=== PATIENT | female | born 1945 | race Caucasian/White ===

== ENCOUNTER 2019-01-06 20:06 | Emergency (ER) | payer MEDICARE, BC ==
[2019-01-06] MEDS ORDERED: Acetaminophen/HYDROcodone 325-5 MG Tab PO ONE (20:38)
--- NOTE | 2019-01-06 20:54 | EDM.PDOC ---
ED HPI GENERAL MEDICAL PROBLEM - General Chief Complaint: General Stated Complaint: ARM Time Seen by Provider: 01/06/19 20:30 Source of Information: Reports: Patient, Family History Limitations: Reports: No Limitations - History of Present Illness INITIAL COMMENTS - FREE TEXT/NARRATIVE: Shirlene comes into [facility] ED with a swollen R forearm that she struck onto a door this am. Initially there was just minor swelling with a minor skin tear, but swelling has progressed slowly throughout the day, associated with discoloration of the skin, and more recent onset of pain radiating into the R posterior arm. Grasp is painful, and she cannot hold an ink pen to sign her name. She has taken no meds. She is not on anticoagulants. ED ROS GENERAL - Review of Systems Review Of Systems: ROS reveals no pertinent complaints other than HPI. ED EXAM, GENERAL - Physical Exam Exam: See Below Exam Limited By: No Limitations General Appearance: Alert, WD/WN, Moderate Distress Head: Atraumatic, Normocephalic Neck: Normal Inspection, Supple Respiratory/Chest: No Respiratory Distress, Lungs Clear, No Accessory Muscle Use Cardiovascular: Regular Rate, Rhythm Extremities: Arm Pain (R forearm: dorsal swelling with marked ecchymoses measuring 16 cm, in addition to a superfical 2.4x2.4 cm laceration with no active bleeding. The R hand and wrist seem unaffected, and there is no effusion of the elbow. ), Limited Range of Motion Neurological: Alert, Oriented, CN II-XII Intact, Normal Cognition, No Motor/ Sensory Deficits Psychiatric: Normal Affect, Anxious Skin Exam: Warm, Dry, Ecchymosis, Wound/Incision Lymphatic: No Adenopathy Course - Vital Signs Text/Narrative:: Following assessment, I discussed case with [facility] ED regarding further assessment including US imaging and possible surgical consultation, and Shirlene was accepted as a patient. Hydrocodone 5/325 po given prior to transfer. The wound was dressed with Telfa. - Orders/Labs/Meds Meds: Medications Discontinued Medications Generic Name Dose Route Start Last Admin Trade Name Freq PRN Reason Stop Dose Admin Hydrocodone Bitart/Acetaminophen 1 tab 01/06/19 20:38 01/06/19 20:44 [place] 325-5 Mg PO 01/06/19 20:39 1 tab ONETIME ONE Administration Departure - Departure Time of Disposition: 20:45 Disposition: DC/Tfer to Other 70 Condition: Fair Clinical Impression: Traumatic hematoma of right forearm Qualifiers: Encounter type: initial encounter Qualified Code(s): S50.11XA - Contusion of right forearm, initial encounter - Discharge Information *PRESCRIPTION DRUG MONITORING PROGRAM REVIEWED*: Not Applicable *COPY OF PRESCRIPTION DRUG MONITORING REPORT IN PATIENT MARIS: Not Applicable Referrals: PCP,None [Primary Care Provider] - Forms: ED Department Discharge - Problem List & Annotations (1) Traumatic hematoma of right forearm SNOMED Code(s): 29382576 Code(s): S50.11XA - CONTUSION OF RIGHT FOREARM, INITIAL ENCOUNTER Status: Acute Current Visit: Yes Annotation/Comment:: Will see [facility] ED for further evaluation. Qualifiers: Encounter type: initial encounter Qualified Code(s): S50.11XA - Contusion of right forearm, initial encounter - Problem List Review Problem List Initiated/Reviewed/Updated: Yes - Assessment/Plan Plan: Follow up with PCP.
== END 2019-01-06 20:50 | disposition other institution (70) ==
LOC: FB.ED 20:06
DX: S51.811A Laceration without foreign body of right forearm, initial encounter (principal); W22.8XXA Striking against or struck by other objects, initial encounter
CPT/HCPCS: 99284; A9270